=== PATIENT | male | born 1980 | race Caucasian/White ===

== ENCOUNTER → 2022-08-25 | Outpatient (CLI) | payer OTHER ==
--- NOTE | 2022-08-25 07:49 | US ---
EXAMINATION TYPE: US abdomen complete DATE OF EXAM: 08/25/2022 COMPARISON: NONE CLINICAL HISTORY: R10.9 UNSPECIFIED ABDOMINAL PAIN. Abdominal pain TECHNIQUE: Multiple sonographic images of the abdomen are obtained. FINDINGS: EXAM MEASUREMENTS: Liver Length: 14.2 cm Gallbladder Wall: 0.2 cm CBD: 0.4 cm Spleen: 10.3 cm Right Kidney: 11.0 x 5.5 x 4.2 cm Left Kidney: 12.0 x 4.7 x 5.3 cm FUEL OPERATOR NOTES: Exam is limited due to great amount of bowel gas. Pancreas: Limited due to gas. Liver: Appears very coarse in echotexture with increased echogenicity. No focal hepatic lesion ident ified. Gallbladder: Multiple hyperechoic areas seen that appear to be attached to the gallbladder wall, lar gest measures 0.6 x 0.7 x 0.4 cm. No wall thickening or pericholecystic fluid. Evidence for sonographic Ford's sign: No CBD: Small portion seen appears wnl Spleen: Appears wnl Right Kidney: Appears very heterogeneous. Unable to measure a distinct mass upper pole, but question able abnormal appearance. No hydronephrosis or shadowing calculus. Left Kidney: Hyperechoic focus seen upper-mid: 0.4 x 0.4 x 0.3 cm. Consistent with a calculus. No hyd ronephrosis. No contour deforming solid mass. Upper IVC: Appears wnl Abd Aorta: Portions seen appear wnl, iliacs were obscured. IMPRESSION: 1. Questionable heterogenous appearance to the superior pole of the right kidney without discrete ma ss identified. This may represent artifact versus underlying mass. Follow-up ultrasound in 6 months i s recommended. 2. Hepatic steatosis. 3. Gallbladder polyps measuring up to 7 mm. This can be reassessed on follow-up ultrasound. 4. Nonobstructive left renal calculus.
== END | disposition home or self-care (01) ==
LOC: RADUSWWP 06:45
PROVIDERS: ATTEND Family Medicine
DX: N20.0 Calculus of kidney (principal); K82.4 Cholesterolosis of gallbladder; K76.0 Fatty (change of) liver, not elsewhere classified
CPT/HCPCS: 76700

== ENCOUNTER → 2022-08-26 | Outpatient (CLI) | payer OTHER ==
--- NOTE | 2022-08-26 09:25 | NM ---
Nuclear medicine hepatobiliary scan. HISTORY: Pain. DOSAGE: The patient CAD analysis of an sharp loss and 4.0 mCi of Technetium 99m Choletec. FINDINGS: There is normal hepatic extraction. The gallbladder is seen by 15 minutes. There is bilia ry to bowel clearance by 15 minutes. Ejection fraction is 99%. IMPRESSION: 1. No evidence of cholecystitis. 2. Ejection fraction of 99% indication associated with hyperdynamic gallbladder correlate clinically.
== END | disposition home or self-care (01) ==
LOC: RADNMMAIN 06:53
PROVIDERS: ATTEND Family Medicine
DX: R10.9 Unspecified abdominal pain (principal); I25.10 Atherosclerotic heart disease of native coronary artery without angina pectoris
CPT/HCPCS: 78227; A9537

== ENCOUNTER 2023-12-02 18:58 | Emergency (ER) | payer BC ==
[2023-12-02 19:15] VITALS: BP 131/83; PULSE 94; RESP 16; TEMP 100.6
--- NOTE | 2023-12-02 19:39 | ED ---
Fever HPI - General Source: patient Mode of arrival: ambulatory Limitations: no limitations <Farhat Sandoval - Last Filed: 12/02/23 19:39> - General Source: patient, RN notes reviewed Mode of arrival: ambulatory Limitations: no limitations <Patricia Stout - Last Filed: 12/02/23 23:34> - General Chief Complaint: Fever Stated Complaint: fever headache chills bodyache Time Seen by Provider: 12/02/23 19:38 - History of Present Illness Initial Comments: 43-year-old male presents to the ED with a chief complaint of fever. Patient states him and his whole family has recently had a respiratory infection s ymptoms. Notes that he has had cough, sore throat, myalgias, fatigue. (Farhat Sandoval) 43-year-old male presents to the emergency department for evaluation of muscle aches, headache, fever. Symptoms have been going on since Wednesday. He states that he has been running a fever. He has not taken anything for this today. His son and also have the same symptoms. (Patricia Stout) - Related Data Previous Rx's Medication Instructions Recorded Amoxic-Pot Clav 875-125Mg 1 tab PO Q12HR 10 Days #20 tab 12/05/22 [Augmentin 875-125] Ibuprofen [Motrin] 800 mg PO Q8HR PRN #30 tab 12/05/22 Ondansetron Odt [Zofran Odt] 4 mg PO Q8HR PRN #10 tab 12/05/22 Amoxic-Pot Clav 875-125Mg 1 tab PO Q12HR #20 tab 12/02/23 [Augmentin 875-125] Allergies Allergy/AdvReac Type Severity Reaction Status Date / Time No Known Allergies Allergy Verified 12/02/23 19:03 Review of Systems ROS Other: All systems not noted in ROS Statement are negative. <Farhat Sandoval - Last Filed: 12/02/23 19:39> ROS Other: All systems not noted in ROS Statement are negative. <Patricia Stout - Last Filed: 12/02/23 23:34> ROS Statement: Those systems with pertinent positive or pertinent negative responses have been documented in the HPI. Past Medical History Past Medical History: No Reported History History of Any Multi-Drug Resistant Organisms: None Reported Past Surgical History: Adenoidectomy, Tonsillectomy Past Psychological History: Anxiety Smoking Status: Former smoker Past Alcohol Use History: None Reported Past Drug Use History: None Reported <Farhat Sandoval - Last Filed: 12/02/23 19:39> General Exam Limitations: no limitations <LoriFarhat - Last Filed: 12/02/23 19:39> Limitations: no limitations General appearance: alert, in no apparent distress Head exam: Present: atraumatic, normocephalic, normal inspection Eye exam: Present: normal appearance, PERRL, EOMI. Absent: scleral icterus, conjunctival injection, periorbital swelling ENT exam: Present: normal exam, mucous membranes moist, TM's normal bilaterally, normal external ear exam Neck exam: Present: normal inspection. Absent: tenderness, meningismus, lymphadenopathy Respiratory exam: Present: normal lung sounds bilaterally. Absent: respiratory distress, wheezes, rales, rhonchi, stridor Cardiovascular Exam: Present: regular rate, normal rhythm, normal heart sounds. Absent: systolic murmur, diastolic murmur, rubs, gallop, clicks Extremities exam: Present: normal inspection, full ROM, normal capillary refill. Absent: tenderness, pedal edema, joint swelling, calf tenderness Back exam: Present: normal inspection Neurological exam: Present: alert, oriented X3 Psychiatric exam: Present: normal affect, normal mood Skin exam: Present: warm, dry, intact, normal color. Absent: rash <Patricia Stout - Last Filed: 12/02/23 23:34> - General Exam Comments Initial Comments: Visual Physical Exam Vital signs reviewed General: Well-appearing, nontoxic, no acute distress. Head: Normocephalic, atraumatic Eyes: PERRLA, EOMI ENT: Airway patent Chest: Nonlabored breathing Skin: No visual rash, normal skin tone Neuro: Alert and oriented 3 Musculoskeletal: No gross abnormalities (Farhat Sandoval) Course Vital Signs 12/02/23 19:01 Temperature 100.6 F H Pulse Rate 94 Respiratory 16 Rate Blood Pressure 131/83 O2 Sat by Pulse 95 Oximetry Medical Decision Making <Farhat Sandoval - Last Filed: 12/02/23 19:39> <Patricia Stout - Last Filed: 12/02/23 23:34> - Medical Decision Making Quicknote portion performed. Signed Farhat Sandoval PA-C (Farhat Sandoval) Was pt. sent in by a medical professional or institution (ISAEL Hutchinson, [employer], urgent care, hospital, or fci...) When possible be specific @ -No Did you speak to anyone other than the patient for history (EMS, parent, family, police, friend...)? What history was obtained from this source @ -No Did you review nursing and triage notes (agree or disagree)? Why? @ -I reviewed and agree with nursing and triage notes Were old charts reviewed (outside hosp., previous admission, EMS record, old EKG, old radiological studies, urgent care reports/EKG's, fci records)? Report findings @ -No old charts were reviewed Differential Diagnosis (chest pain, altered mental status, abdominal pain women, abdominal pain men, vaginal bleeding, weakness, fever, dyspnea, syncope, headach e, dizziness, GI bleed, back pain, seizure, CVA, palpatations, mental health, musculoskeletal)? @ -Differential Fever: Pneumonia, viral URI, endocarditis, myocarditis, pericarditis, otitis, sinusiti s, peritonsillar Abscess, retropharyngeal Abscess, epiglottitis, peritonitis, appendicitis, Priscila cystitis, diverticulitis, hepatitis, colitis, UTI, PID, TOA, pyelonephritis, prostatitis, epididymitis, meningitis, encephalitis, pulmonary embolism, CVA, thyroid storm, pancreatitis, adrenal crisis, cavernous sinus thrombosis, this is not meant to be an all-inclusive list. EKG interpreted by me (3pts min.). @ -None X-rays interpreted by me (1pt min.). @ -Chest x-ray shows possible bronchopneumonia CT interpreted by me (1pt min.). @ -None done U/S interpreted by me (1pt. min.). @ -None done What testing was considered but not performed or refused? (CT, X-rays, U/S, labs)? Why? @ -None What meds were considered but not given or refused? Why? @ -None Did you discuss the management of the patient with other professionals (professionals i.e. ISAEL Hutchinson, [employer]OR, lab, RT, psych nurse, child welfare social worker, program management specialist, teacher, ordnance corps officer, clinical case manager)? Give summary @ -No Was smoking cessation discussed for >3mins.? @ -No Was critical care preformed (if so, how long)? @ -No Were there social determinants of health that impacted care today? How? (Homelessness, low income, unemployed, alcoholism, drug addiction, transportation, low edu. Level, literacy, decrease access to med. care, residential, rehab)? @ -No Was there de-escalation of care discussed even if they declined (Discuss DNR or withdrawal of care, Hospice)? DNR status @ -No What co-morbidities impacted this encounter? (DM, HTN, Smoking, COPD, CAD, Cancer, CVA, ARF, Chemo, Hep., AIDS, mental health diagnosis, sleep apnea, morbid obesity)? @ -None Was patient admitted / discharged? Hospital course, mention meds given and route, prescriptions, significant lab abnormalities, going to OR and other pertinent info. @ -Discharge. Patient presented to the emergency department for evaluation of cough, congestion, fever. Patient states that the symptoms have been going on since Wednesday. He does report that his son and have similar symptoms. Patient is febrile on initial presentation. He has not taken anything for this today. He was given a dose of Tylenol and Motrin in the emergency department. Patient also given a dose of Zofran and a starter pack. Patient tested positive for influenza A. COVID, RSV negative. Chest x-ray obtained which shows a possible bronchopneumonia. Patient will be treated as an overlying bacterial pneumonia. Advised to have a repeat chest x-ray in 6 to 9 weeks. Patient understanding agreeable with plan. Patient stable at time of discharge. Case discussed with Dr. Moreno. Undiagnosed new problem with uncertain prognosis? @ -No Drug Therapy requiring intensive monitoring for toxicity (Heparin, Nitro, Insulin, Cardizem)? @ -No Were any procedures done? @ -No Diagnosis/symptom? @ -Influenza A, bronchopneumonia Acute, or Chronic, or Acute on Chronic? @ -Acute Uncomplicated (without systemic symptoms) or Complicated (systemic symptoms)? @ -Complicated Side effects of treatment? @ -No Exacerbation, Progression, or Severe Exacerbation? @ -No Poses a threat to life or bodily function? How? (Chest pain, [place], [place], pneumonia, PE, COPD, DKA, ARF, appy, cholecystitis, CVA, Diverticulitis, Homicidal, Suicidal, threat to staff... and all critical care pts) @ -No (Patricia Stout) - Lab Data Lab Results 12/02/23 Range/Units 19:06 Influenza Type A (PCR) Detected A (Not Detectd) Influenza Type B (PCR) Not Detected (Not Detectd) RSV (PCR) Not Detected (Not Detectd) SARS-CoV-2 (PCR) Not Detected (Not Detectd) Disposition <Farhat Sandoval - Last Filed: 12/02/23 19:39> Is patient prescribed a controlled substance at d/c from ED?: No <Patricia Stout - Last Filed: 12/02/23 23:34> Clinical Impression: Pneumonia and influenza Disposition: HOME SELF-CARE Condition: Stable Instructions (If sedation given, give patient instructions): Fever in Adults (ED) Additional Instructions: Please lease picker antibiotics and take to completion. Follow up with your PCP for repeat chest X-ray in 6-9 weeks. Return to the emergency department for new or worsening symptoms. Prescriptions: Amoxic-Pot Clav 875-125Mg [Augmentin 875-125] 1 tab PO Q12HR #20 tab Referrals: Radha Newton MD [Primary Care Provider] - 1-2 days
--- NOTE | 2023-12-02 21:30 | XR ---
EXAMINATION: XR chest 2V: 12/02/2023 8:17 PM CLINICAL INDICATION: r/o pna TECHNIQUE: Departmental protocol COMPARISON: None FINDINGS/IMPRESSION: There is ill-defined consolidated opacity in the right infrahilar position, consistent with bronchopn eumonia. Would recommend 6-19 week follow-up PA and lateral chest radiographs, or CT, to prove resolu tion of the findings. The lungs are otherwise clear. Pleural spaces are negative. Cardiomediastinal silhouette is unremarkable. Skeletal structures and soft tissues are negative for acute findings.
[2023-12-02] MEDS: ACETAMINOPHEN TAB 500 MG TAB PO STA (21:32)
[2023-12-02] MEDS: IBUPROFEN 600 MG TAB PO STA (21:33)
[2023-12-02] MEDS: ONDANSETRON 4 MG ODT STARTER PACK 2 TAB BTL PO STA (21:34)
[2023-12-02] MEDS: ONDANSETRON ODT 4 MG TAB PO STA (21:34)
== END 2023-12-02 22:17 | disposition home or self-care (01) ==
LOC: EC 18:58
DX: J10.08 Influenza due to other identified influenza virus with other specified pneumonia (principal); J18.0 Bronchopneumonia, unspecified organism; J10.1 Influenza due to other identified influenza virus with other respiratory manifestations; Z86.59 Personal history of other mental and behavioral disorders; Z87.891 Personal history of nicotine dependence; Z20.822 Contact with and (suspected) exposure to COVID-19
CPT/HCPCS: 99284 ×2; 87636; 71046; S0119

== ENCOUNTER → 2024-08-04 | Outpatient (CLI) | payer BC ==
--- NOTE | 2024-08-04 09:50 | US ---
EXAMINATION TYPE: US abdomen complete DATE OF EXAM: 08/04/2024 COMPARISON: CT abdomen and pelvis 12/05/2022, abdominal ultrasound 08/25/2022 CLINICAL INDICATION: Male, 43 years old with history of R10.9 UNSPECIFIED ABDOMINAL PAIN; Pain hx of polyps TECHNIQUE: Grayscale and color Doppler imaging of the abdomen was performed. FINDINGS: EXAM MEASUREMENTS: Liver Length: 15.2 cm Gallbladder Wall: .1 cm CBD: .4 cm Spleen: 10.3 cm Right Kidney: 10.9 x 5.0 x 3.9 cm Left Kidney: 12.1 x 5.9 x 4.3 cm cm SURGICAL GARMENT ASSEMBLER NOTES: Pancreas: Obscured by bowel gas Liver: Increased attenuation Hypoechoic area seen left lobe 1.9 x 1.4 x 1.9 cm Gallbladder: Echogenic areas seen suggestive of polyps Evidence for sonographic Ford's sign: no CBD: wnl Spleen: wnl Right Kidney: wnl Left Kidney: wnl Upper IVC: wnl Abd Aorta: wnl The liver demonstrates increased attenuation with a hypoechoic area within the left hepatic lobe corazon uring 1.9 cm with some peripheral color flow. Overall liver echotexture is coarsened. The intrahepati c portion of the IVC and proximal abdominal aorta are within normal limits. Nonshadowing echogenic fo ci along the moon of the gallbladder measuring up to 6 mm. Similar to prior ultrasound. Common bile duct is unremarkable. The visualized portions of the pancreas are homogenous. The spleen is unremar kable. Kidneys are symmetric and free of hydronephrosis. No renal lesions are seen. IMPRESSION: 1. Heterogenous appearance to the liver suggesting hepatic steatosis with a hypoechoic 1.9 cm region within the left hepatic lobe which may represent focal fatty sparing versus other etiologies. Furthe r evaluation with CT or MRI abdomen with IV contrast (liver mass protocol) is recommended. 2. Similar gallbladder polyps measuring up to 6 mm dating back to 08/25/2022. [facility], , 08/04/2024 9:47 AM
== END | disposition home or self-care (01) ==
LOC: RADUSWWP 07:44
PROVIDERS: ATTEND Internal Medicine Geriatric Medicine
CPT/HCPCS: 76700

== ENCOUNTER → 2024-08-23 | Outpatient (CLI) | payer BC ==
--- NOTE | 2024-08-23 12:38 | NM ---
EXAMINATION TYPE: NM hepatobiliary w EF DATE OF EXAM: 08/23/2024 11:38 AM COMPARISON: 12/05/2022 CLINICAL INDICATION:Male, 43 years old with history of K82.4 CHOLESTEROLOSIS OF GALLBLADDER; TECHNIQUE: The patient was given 4.9 mCi of Technetium 99m-Mebrofenin as a radiotracer and multiple scintigraphic images were obtained of the abdomen. Gallbladder function was also assessed after the a dministration of ensure drink and additional scintigraphic images were obtained of the abdomen. A reg ion of interest was drawn over the gallbladder and a timing activity curve was generated. The gallbla dder ejection fraction was calculated. FINDINGS: Normal uptake of radiotracer was identified within the liver with excretion into the hepatic and comm on biliary ducts within 6 min. There was normal progressive washout of the liver over the course of t he study. Radiotracer uptake within the gallbladder at 240 seconds as well as small bowel activity wa s identified at 42 minutes. Maximum calculated gallbladder ejection fraction is: 50% at 30 minutes (Normal gallbladder ejection fraction is > 35%) IMPRESSION: 1. Normal hepatobiliary scan. 2. Normal ejection fraction. [facility], , 08/23/2024 12:35 PM
== END | disposition home or self-care (01) ==
LOC: RADNMMAIN 07:36
PROVIDERS: ATTEND Internal Medicine Geriatric Medicine
DX: K82.4 Cholesterolosis of gallbladder (principal)
CPT/HCPCS: 78226; A9537

== ENCOUNTER → 2025-01-29 | Outpatient (CLI) | payer BC ==
--- NOTE | 2025-01-30 08:20 | CT ---
EXAMINATION TYPE: CT facial bones w con CT DLP: 459.8 mGycm, Automated exposure control for dose reduction was used. DATE OF EXAM: 01/29/2025 4:01 PM COMPARISON: None. CLINICAL INDICATION:Male, 44 years old with history of R22.0 LOCALIZED SWELLING, MASS AND LUMP, HEAD; PHH, RIGHT SIDE FACIAL SWELLING, NO INJURY, pain TECHNIQUE: Multiple axial CT images were obtained of the facial bones soft tissue and bone windows we re obtained after the uneventful administration of 100 mL of Isovue-370 intravenously. Coronal, axia l and sagittal reformatted images were also provided in soft tissue and bone windows and submitted fo r interpretation. FINDINGS: There is no evidence of fracture, subluxation, dislocation, or significant soft tissue swelling. The orbital contents are unremarkable.The temporal-mandibular joints appear symmetric. The visualized por tion of the paranasal sinuses appear clear. No pathologically enlarged lymph nodes identified. No ab normal contrast enhancement. IMPRESSION: Unremarkable CT of the facial bones. [facility], , 01/30/2025 8:18 AM
== END | disposition home or self-care (01) ==
LOC: RADCTMAIN 15:29
PROVIDERS: ATTEND Internal Medicine Geriatric Medicine
DX: R22.0 Localized swelling, mass and lump, head (principal)
CPT/HCPCS: 70487; Q9967